=== PATIENT | female | born 1990 | race Caucasian/White ===

== ENCOUNTER → 2020-03-15 | Outpatient (CLI) | payer OTHER | LOC: MC.RAD 07:00 | DX: R22.31 Localized swelling, mass and lump, right upper limb (principal) ==

== ENCOUNTER 2020-04-21 18:48 | Emergency (ER) | payer OTHER ==
[~2020-04-21] VITALS: Ht 152.4 cm; Wt 84.1 kg
[2020-04-21 19:28] VITALS: TEMP 98.1
[2020-04-21 20:21] LABS: STREP SCREEN NEGATIVE
[2020-04-21] MEDS ORDERED: AMOXICILLIN875 MG PO (21:34)
[2020-04-21 21:53] VITALS: BP 130/79; PULSE 89
== END 2020-04-21 21:54 | disposition home or self-care (01) ==
LOC: COL.ER 18:48
PROVIDERS: Nurse Practitioner Primary Care
DX: J02.9 Acute pharyngitis, unspecified (principal); Z20.822 Contact with and (suspected) exposure to COVID-19; Z90.89 Acquired absence of other organs
CPT/HCPCS: J1100; J1885